=== PATIENT | male | born 1950 | race Two or more races ===

== ENCOUNTER 2019-09-03 04:59 | Inpatient (IN) | payer OTHER ==
[~2019-09-03] VITALS: Ht 172.7 cm; Wt 123.8 kg
[2019-09-03 05:30] VITALS: BP 158/98
[2019-09-03] MEDS ORDERED: BACITRACIN 50000 UNITS/VIAL ONE (05:55)
[2019-09-03] MEDS ORDERED: BUPIVACAINE 0.5 % PF 150 MG/30 ML VIAL ONE (05:55)
[2019-09-03] MEDS ORDERED: BUPIVACAINE MPF 0.5% W/EPI INJ 30 ML VIAL ONE (05:55)
[2019-09-03] MEDS ORDERED: ANESTHESIA TRAY IN PYXIS 1 EA TRAY MC ONE (05:55)
[2019-09-03] MEDS ORDERED: TRANEXAMIC ACID 3,000 MG in SODIUM CHLORIDE IRRIG SOLUTION 70 ML IR ONE (07:30)
[2019-09-03] MEDS ORDERED: TRANEXAMIC ACID 1,000 MG in IV NS 0.9% 100 ML IV ONE (08:00)
[2019-09-03] MEDS ORDERED: GELATIN SPONGE,ABSORBABLE 1 EA SPONGE TP ONE (08:01)
[2019-09-03] MEDS ORDERED: THROMBIN (BOVINE) 5,000 UNITS VIAL TP ONE (08:01)
[2019-09-03] MEDS ORDERED: LABETALOL HCL IV 100MG VIAL ONE (09:21)
[2019-09-03 09:50] VITALS: BP 105/82
[2019-09-03 10:00] VITALS: BP 107/71
[2019-09-03] MEDS ORDERED: HYDROMORPHONE 1 MG/1 ML DISP.SYRIN IV PRN (10:30)
[2019-09-03] MEDS ORDERED: HYDROCODONE/APAP 10/325MG 1 EA TABLET PO PRN (10:30)
[2019-09-03] MEDS ORDERED: DOCUSATE SODIUM 250 MG CAPSULE PO PRN (11:30)
[2019-09-03] MEDS ORDERED: ONDANSETRON HCL/PF 4 MG/2 ML VIAL IVP PRN (11:30)
[2019-09-03] MEDS ORDERED: ACETAMINOPHEN 325 MG TABLET PO PRN (11:30)
[2019-09-03] MEDS ORDERED: BISACODYL SUPP (10 MG) 10 MG/SUPP.RECT SUPP.RECT RC PRN (11:30)
[2019-09-03] MEDS: IV D5/0.45 NACL 1,000 ML IV PRN ×2 (11:36→21:37)
[2019-09-03 12:45] LABS: HEMOGLOBIN 17.2 g/dL (13.5-17.5)
[2019-09-03] MEDS ORDERED: HYDR25TA4 PO (13:19)
[2019-09-03] MEDS ORDERED: CLOP75TA15 PO (13:19)
[2019-09-03] MEDS ORDERED: LOSA100T31 PO (13:19)
[2019-09-03] MEDS ORDERED: ESOM20CA PO (13:19)
[2019-09-03] MEDS ORDERED: EMPA25TA PO (13:19)
[2019-09-03] MEDS ORDERED: METF-442 PO (13:19)
[2019-09-03] MEDS ORDERED: ATOR40TA PO (13:19)
[2019-09-03] MEDS: ANCEF 1 GM/50 ML D5W IV SCH ×4 (14:04→21:14)
[2019-09-03] MEDS ORDERED: *INSULIN REGULAR(HUMULIN R)HUM 100 UNIT/ML VIAL SQ PRN (15:00)
[2019-09-03] MEDS ORDERED: MAG HYDROX/AL HYDROX/SIMETH 30 ML UDC PO PRN (15:00)
[2019-09-03] MEDS ORDERED: DEXTROSE 50%-WATER 50 ML DISP.SYRIN IV PRN (15:00)
[2019-09-03] MEDS ORDERED: oxyCODONE IR immediate release 5 MG PO PRN (15:00)
[2019-09-03] MEDS ORDERED: CLONIDINE HCL 0.1 MG TABLET PO PRN (15:00)
[2019-09-03] MEDS ORDERED: diphenhydrAMINE HCL 25 MG CAPSULE PO PRN (15:00)
[2019-09-03] MEDS ORDERED: RIVA10TA PO (16:08)
[2019-09-03 16:27] VITALS: BP 141/83
[2019-09-03] MEDS: DOCUSATE SODIUM 100 MG CAPSULE PO SCH (17:27)
[2019-09-03] MEDS: METFORMIN 500 MG TABLET PO SCH (17:27)
[2019-09-03] MEDS: INSULIN REGULAR, HUMAN 100 UNIT/ML 3 ML VIAL SQ PRN (17:32)
[2019-09-03] MEDS: BLOOD SUGAR DIAGNOSTIC 1 EACH STRIP VI SCH ×2 (17:33→21:43)
[2019-09-03] MEDS ORDERED: HYDROCODONE/APAP 10/325MG 1 EA TABLET PO ONE (17:45)
[2019-09-03 20:00] VITALS: BP 135/94
[2019-09-03] MEDS: FAMOTIDINE (20 MG) 20 MG TABLET PO SCH (21:13)
[2019-09-03] MEDS ORDERED: SENNOSIDES 8.6 MG TABLET PO PRN (22:00)
[2019-09-03] MEDS ORDERED: ZOLPIDEM TARTRATE 5 MG TABLET PO PRN (22:00)
[2019-09-03] MEDS ORDERED: ATORVASTATIN 40 MG TABLET PO SCH (22:00)
[2019-09-04] MEDS: HYDROMORPHONE 1 MG/1 ML DISP.SYRIN SQ PRN ×2 (01:38→05:27)
[2019-09-04] MEDS: BLOOD SUGAR DIAGNOSTIC 1 EACH STRIP VI SCH ×3 (06:41→16:54)
[2019-09-04] MEDS: INSULIN REGULAR, HUMAN 100 UNIT/ML 3 ML VIAL SQ PRN ×2 (06:47→12:20)
[2019-09-04 07:20] LABS: CALCIUM, SERUM 7.8 mg/dL (8.5-10.1); POTASSIUM 4.9 mmol/L (3.5-5.1)
[2019-09-04] MEDS ORDERED: PANTOPRAZOLE 40 MG TABLET.DR PO SCH (07:30)
[2019-09-04 08:00] VITALS: BP 128/96
[2019-09-04] MEDS: IV D5/0.45 NACL 1,000 ML IV PRN (08:26)
[2019-09-04] MEDS: DOCUSATE SODIUM 100 MG CAPSULE PO SCH ×2 (08:26→16:56)
[2019-09-04] MEDS: ASPIRIN 325 MG TABLET PO SCH ×2 (08:26→16:56)
[2019-09-04] MEDS: METFORMIN 500 MG TABLET PO SCH ×2 (08:27→16:56)
[2019-09-04] MEDS: FAMOTIDINE (20 MG) 20 MG TABLET PO SCH (08:27)
[2019-09-04] MEDS ORDERED: HYDROCHLOROTHIAZIDE 25 MG TABLET PO SCH (09:00)
[2019-09-04] MEDS ORDERED: LOSARTAN POTASSIUM 50 MG TABLET PO SCH (09:00)
[2019-09-04 16:00] VITALS: BP 133/81
[2019-09-04] MEDS ORDERED: ONDA4TAB5 PO (16:44)
[2019-09-04] MEDS ORDERED: RIVAROXABAN 10 MG TABLET PO SCH (17:00)
== END 2019-09-04 17:00 | disposition home or self-care (01) | DRG 483 ==
LOC: DS 04:59 → MED 05:00
PROVIDERS: ADMIT Internal Medicine; ATTEND Internal Medicine
DX: M75.121 Complete rotator cuff tear or rupture of right shoulder, not specified as traumatic (principal); I48.20 Chronic atrial fibrillation, unspecified; Z68.41 Body mass index [BMI] 40.0-44.9, adult; I10 Essential (primary) hypertension; E11.9 Type 2 diabetes mellitus without complications; I27.21 Secondary pulmonary arterial hypertension; D69.6 Thrombocytopenia, unspecified; G47.33 Obstructive sleep apnea (adult) (pediatric); E66.01 Morbid (severe) obesity due to excess calories; Z79.84 Long term (current) use of oral hypoglycemic drugs; Z79.01 Long term (current) use of anticoagulants; K21.9 Gastro-esophageal reflux disease without esophagitis; J44.9 Chronic obstructive pulmonary disease, unspecified; K70.30 Alcoholic cirrhosis of liver without ascites
CPT/HCPCS: 36415; 73020; 80048-TC; 82962-TC; 85027-TC; 87081-TC; 88305-TC; 88311-TC; G0378; J0690; J1170; J1200; J1815; J2250; J2405; J2704; J2710; J2765; J3010; J3490; J7030; J7060